=== PATIENT | male | born 1965 | race Caucasian/White ===

== ENCOUNTER → 2025-06-08 14:20 | Outpatient (REF) | payer BC, SELFPAY ==
[2025-06-08 15:49] LABS: Blood Urea Nitrogen 28 mg/dl (9-20); Calcium 9.6 mg/dl (8.4-10.2); Carbon Dioxide 27 mmol/L (22-30); Chloride 107 mmol/L (98-107); Glucose 131 mg/dl (70-99); Potassium 4.6 mmol/L (3.5-5.1); Sodium 139 mmol/L (135-145); eGFR > 60.00
== END ==
LOC: REG 14:20
PROVIDERS: ATTENDING PHYSICIAN Urology; FAMILY PHYSICIAN Family Medicine
DX: Z01.818 Encounter for other preprocedural examination (principal)
CPT/HCPCS: 36415; 80048

== ENCOUNTER → 2025-06-14 14:19 | Outpatient (REF) | payer BC, SELFPAY | LOC: RAD 14:19 | PROVIDERS: ATTENDING PHYSICIAN Urology; FAMILY PHYSICIAN Family Medicine | DX: R31.0 Gross hematuria (principal); N40.0 Benign prostatic hyperplasia without lower urinary tract symptoms | CPT/HCPCS: 74178; Q9967 ==

== ENCOUNTER 2025-07-25 14:42 | Emergency (ER) | payer BC, SELFPAY ==
[2025-07-25 14:50] VITALS: BP 149/77
[2025-07-25 16:21] LABS: Urine Character Clear (Clear)
[2025-07-25 16:25] LABS: Hematocrit 43.7 % (39.0-52.0); Hemoglobin 15.5 g/dL (13.0-18.0); Mean Corp Hgb Conc. 35.5 g/dL (33.0-37.0); Mean Corpuscular Volume 85.9 fL (80.0-94.0); Nucleated Red Blood Cells % 0 % (-); Platelet Count 183 10^3/uL (130-400); Red Cell Dist. Width 12.4 % (11.5-14.5)
[2025-07-25 16:40] LABS: Urine Red Blood Cell 0-2 /HPF (0-2); Urine Squamous Cell 0-2 /LPF (Few)
[2025-07-25 16:41] LABS: ALT (SGPT) 40 U/L (0-50); AST (SGOT) 27 U/L (17-59); Albumin 4.8 g/dl (3.5-5.0); Alkaline Phosphatase 41 U/L (38-126); Blood Urea Nitrogen 10 mg/dl (9-20); Calcium 9.9 mg/dl (8.4-10.2); Carbon Dioxide 22 mmol/L (22-30); Chloride 108 mmol/L (98-107); Glucose 111 mg/dl (70-99); Potassium 4.4 mmol/L (3.5-5.1); Sodium 139 mmol/L (135-145); Total Protein 7.4 g/dl (6.3-8.2); eGFR > 60.00
[2025-07-25 16:52] LABS: Troponin I < 0.012 ng/ml
[2025-07-25 17:05] VITALS: BP 147/87
--- NOTE | 2025-07-25 17:05 | EDRN ---
Pt states he was dizzy, lightheaded, heavy breathing, chest pain in L mid/lower chest, unable to formulate ideas, almost unable to drive. Pt has urinary frequency and states he is unable to void off an on by 3-4 weeks. Pt had cystoscopy and CT done.
Pt has had increased unable to void.
[2025-07-25 17:08] VITALS: BMI 35.5
--- NOTE | 2025-07-25 17:55 | EDRN ---
Dr. Miller in to see pt.
[2025-07-25 18:00] VITALS: BP 127/85
--- NOTE | 2025-07-25 18:13 | EDRN ---
Pt just stated to me that he was having a reaction to tamsulosin before but it was helping him w/ voiding regularly. Pt went to see his PCP and was taken off the tamsulosin last and placed on Finasteride but was unable to void so he decided
to take the tamsulosin last night and had the reaction that he was having prior to and had had this same reaction in the past when he was on Tamsulosin in the past.
--- NOTE | 2025-07-25 18:55 | ED.GENMED ---
History of Present Illness
General
Chief Complaint: Chest Pain
Source: patient and spouse
Exam Limitations: none
Time Seen by Provider: 07/25/25 17:45
Nursing documentation reviewed up to this point in time: agreed with
History of Present Illness
History of Present Illness:
Patient presents to ED secondary to recurrent shortness of breath and dizziness, which has been ongoing since taking Flomax for BPH, along with chest pain this morning. Chest pain described as sharp, diffuse, without any alleviating or exacerbating
factors. Denies nausea, vomiting, or diaphoresis. At the time exam in the ED, patient is without any chest pain. In fact, patient states that most of her symptoms have resolved. Last week, with concern that he may be having symptoms secondary to
use of Flomax, patient proceeded to stop taking Flomax for 2 days. With that, patient's symptoms, including dizziness and shortness of breath resolved completely. Unfortunately, patient was unable to urinate freely. Patient spoke with his primary
care physician who subsequently prescribed finasteride, which was explained to the patient that may not be working for number weeks, as it needs to be build up. As such, patient proceeded to take Flomax again last night, with recurrent symptoms,
including chest pain today. Denies fever or chills.
Past History
Past History
ED Past Medical History: Other ('I never see a doctor') and Other (sleep apnea, chronic sinus problems)
Social History
Tobacco: Former smoker
Alcohol: Occasional
Drug: None
Personal:
Living: with family
Review of Systems
Review of Systems
Allergies reviewed?: Yes
All Other Systems: ROS reviewed and negative except as documented in HPI and ROS
Constitutional: Reports no symptoms
Respiratory: Reports trouble breathing
Cardiac: Reports chest pain
ABD/GI: Reports no symptoms; Denies vomiting or diarrhea
Musculoskeletal: Reports no symptoms
Skin: Reports no symptoms
Neurological: Reports dizzy
Phy Exam
Physical Exam
Physical Exam:
Physical Exam
General: no apparent distress, not acutely ill. afebrile
Head: nc/at. eomi
Neck: supple. normal range of motion.
Heart: s1/s2 regular rate and rhythm
Lungs: no acute respiratory distress. clear bilaterally
Abdomen: normal bowel sounds. not tender. no distention
Neuro: alert and oriented x 3. no focal neurological deficits
Skin: no rash
Psychiatric: well kept. interactive and cooperative
Extremities: no edema. no calf tenderness.
Scores
Heart Score for Chest Pain Patients
STEMI patient?: No
History: Slightly or Non-Suspicious
ECG: Normal
Age: >45 - <65 years
Risk Factors: 1 or 2 Risk Factors
Troponin: </= Normal Limit
Heart Score for Chest Pain Patients: 2
Heart Score Risk: 2.5% MACE over next 6 weeks
Course
Orders/Labs/Results
Orders:
Orders
07/25/25 14:43
Electrocardiogram (*1) Urgent
Reason for Study: Chest Pain
EKG- Treatment ONCE
07/25/25 16:04
Urinalysis Reflex To Culture Urgent
Date Specimen was Collected: 07/25/25
Time Specimen was Collected: 15:55
Urine Microscopic Reflex Cult Urgent
Urine Culture Urgent
SELWYN Source: U
Specimen Description:
Date Specimen was Collected: 07/25/25
Time Specimen was Collected: 15:55
07/25/25 16:09
Complete Blood Count/With Diff Urgent
Comprehensive Metabolic Panel Urgent
Troponin I Urgent
Abnormal Lab Results
07/25/25 07/25/25
16:04 16:09
Absolute Neuts (auto) 7.3 H 10^3/uL
(1.4-6.5)
Neutrophils % 77.1 H %
(42.2-75.2)
Lymphocytes % 15.0 L %
(20.5-51.1)
Chloride 108 H mmol/L
(98-107)
Glucose 111 H mg/dl
(70-99)
Urine Ketones 2+ A
(Negative)
Leukocyte Esterase Rfl 2+ A
(Negative)
Urine Bacteria (Reflex) Few A
(Negative)
07/25/25 16:09
07/25/25 16:09
Vital Signs
Initial and Last Documented VS:
Initial Vital Signs
Temp Pulse Resp BP Pulse Ox
97.0 F 90 18 149/77 97
07/25/25 14:50 07/25/25 14:50 07/25/25 14:50 07/25/25 14:50 07/25/25 14:50
Last Documented Vital Signs
Temp Pulse Resp BP Pulse Ox
97.0 F 71 15 127/85 97
07/25/25 14:50 07/25/25 18:00 07/25/25 18:00 07/25/25 18:00 07/25/25 18:55
MDM/Problems Addressed
MDM/Problems Addressed:
Patient with unremarkable workup in ED, including blood work and EKG. Urinalysis inconclusive for definite infection. Discussed with on-call urology, , who recommends starting patient on Alfuzozin, as an alternative to Flomax, with
scheduled follow-up with his primary urologist, Dr. Castle in 2 weeks. If patient experiences similar side effects or has trouble urinating, recommends that patient call urology office for further recommendation. Patient and spouse expressed
understand time of discharge. Patient's presenting chest pain less likely ACS, but likely symptom as part of his potential likely drug reaction to Flomax.
*Pulse Oximetry
SaO2: 97
Oxygen Mode of Delivery: Room air
Patient hypoxic: no
*Critical Care Note
Total Time (30-74mins, 75-104mins- exclusive of procedures): Not Applicable
ED Attending Note
-
Portions of this chart may have been created with voice recognition software.� Occasional wrong word or��sound alike� substitutions may have occurred due to the inherent limitations of voice recognition software.
Discharge Plan
Departure
Patient Disposition: Home (Routine Discharge)
Date of Disposition: 07/25/25
Time of Disposition: 18:55
Patient with high blood pressure during this ER visit?: Yes
Condition: Fair
Discharge Problem:
BPH (benign prostatic hyperplasia), Adverse drug reaction
Instructions: Benign prostatic hyperplasia (enlarged prostate)
Prescriptions:
New
alfuzosin 10 mg tablet extended release 24 hr
10 mg PO HS Qty: 30 0RF
Referrals:
Tamir Castle MD [Active, Urology]
Iván Neely DO [Family Provider, Family Practice]
Activity Restrictions/Additional Instructions:
As discussed, please follow-up with your urologist for reevaluation. Your prescription has been sent electronically to [facility] pharmacy in [place].
Interventions
Interventions:
*Risk Screen - Suicide Last Done: 07/25/25 14:50
*General Assessment Last Done: 07/25/25 14:50
*Neglect/Abuse Screening Last Done: 07/25/25 17:09
*ED- Fall Risk Assessment Last Done: 07/25/25 17:09
*ED COVID-19 Vaccine History Last Done: 07/25/25 14:50
*ED Influenza Vaccine History Last Done: 07/25/25 14:50
*Nursing Disposition Last Done: 07/25/25 19:32
ED- Cardiac Assessment Last Done: 07/25/25 17:10
Discharge Date and Time
Discharge Date/Time: 07/25/25 19:33
Print Language: YI
== END 2025-07-25 19:33 | disposition home or self-care (01) ==
LOC: EMR 14:42
PROVIDERS: EMERGENCY PHYSICIAN Emergency Medicine; FAMILY PHYSICIAN Family Medicine
DX: N40.0 Benign prostatic hyperplasia without lower urinary tract symptoms (principal); T50.905A Adverse effect of unspecified drugs, medicaments and biological substances, initial encounter; Y92.9 Unspecified place or not applicable; G47.30 Sleep apnea, unspecified; Z87.891 Personal history of nicotine dependence
CPT/HCPCS: 99283; 80053; 81003; 81015; 84484; 85025; 87086; 93005